=== PATIENT | female | born 1945 | race American Indian/Alaskan Native ===

== ENCOUNTER 2016-09-18 12:18 | Emergency (ER) | payer MEDICARE ==
[2016-09-18 12:25] VITALS: TEMP 98.4; O2SAT 98
--- NOTE | 2016-09-18 12:36 | C.PDOC ---
History Of Present Illness 71 yr old female presents to the ER with complaints of right ankle, right knee and left wrist pain since yesterday, after sustaining a mechanical fall. Patient states she twisted her right ankle and fell, trying to break her fall with the left wrist. Patient reports of slight pain with walking. Denies head injury, chest pain, back pain, neck pain, shoulder pain, weakness or numbness. Time Seen by Provider: 09/18/16 12:36 Chief Complaint (Nursing): Lower Extremity Problem/Injury History Per: Patient History/Exam Limitations: no limitations Onset/Duration Of Symptoms: Days (1) Past Medical History Reviewed: Historical Data, Nursing Documentation, Vital Signs Vital Signs: Last Vital Signs Temp 98.4 F 09/18/16 12:23 Pulse 92 H 09/18/16 12:23 Resp 20 09/18/16 12:23 BP 153/88 H 09/18/16 12:23 Pulse Ox 98 09/18/16 13:49 - Medical History PMH: HTN Family History: States: No Known Family Hx - Social History Hx Alcohol Use: No Hx Substance Use: No - Immunization History Hx Tetanus Toxoid Vaccination: No Hx Influenza Vaccination: No Hx Pneumococcal Vaccination: No Review Of Systems Except As Marked, All Systems Reviewed And Found Negative. Cardiovascular: Negative for: Chest Pain Musculoskeletal: Positive for: Other ((+) Right ankle pain. Right knee pain. Left wrist pain. Twisted right ankle. ). Negative for: Neck Pain, Shoulder Pain , Back Pain Neurological: Negative for: Weakness, Numbness Physical Exam - Physical Exam Appears: Well, Non-toxic, No Acute Distress Skin: Warm Head: Atraumatic, Normacephalic Neck: No Midline Cervical Tenderness, No Paracervical Tenderness, No Step Off Deformity, Supple Chest: Symmetrical, No Tenderness Back: No Vertebral Tenderness Extremity: Normal ROM (B/L UEs and LEs), Tenderness (Right ankle,lateral malleolus. Proximal fibula. Posterior right knee. Lateral aspect of left wrist. ), Capillary Refill (<2), No Deformity, No Swelling Neurological/Psych: Oriented x3, Normal Speech, Normal Motor, Normal Sensation, Normal Reflexes ED Course And Treatment O2 Sat by Pulse Oximetry: 98 - Other Rad X-Ray - Right Tibia Fibula, Right Knee, Right Ankle X-Ray: Interpreted by Me, Viewed By Me Interpretation: (+) Osteopenia. DJD. X-Ray - Left Wrist X-Ray: Interpreted by Me, Viewed By Me Interpretation: (-) Fractures. Dislocations. Progress Note: DELAY DUE TO DELAY IN IMAGING STUDY. On re-eavluation, pt eulogio febrile, hemodynamicaly stable. Ambulatory in Ed with stable gait. RLE: exam c /w ankle sprain, no obvious deformity. FAROM, no neurovascular deficits. Left wirst: exam c/w wrist sprain. FAROM, no neurovascular deficits. xray review and appears without acute abnormalities. Andrea wrap applied to Right ankle and Left wrist. Air cast applied to Right ankle. Pt advised on course of ds. ref. to f/u with Ortho in 2-3 days for re-eval. as need. Return if any new changes. Medical Decision Making Medical Decision Making: PLAN: * X-Ray - Left Wrist, Right Tibia Fibula. Right Knee, Right Ankle * Tramadol PO Disposition Counseled Patient/Family Regarding: Studies Performed, Diagnosis, Need For Followup, Rx Given - Disposition Referrals: Christie Claros MD [Staff Provider] - Disposition: HOME/ ROUTINE Disposition Time: 13:50 Condition: STABLE Additional Instructions: Andrea wrap RICE-rest, ice, compression, elevation Take tylenol as need for apin Follow up with Orthopedist in 2-3 days for re-evaluation as need Return to ED if any worsening or new changes. 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 - Scribe Statement The provider has reviewed the documentation as recorded by the Scribe Domonique Anderson All medical record entries made by the Camilaibajith were at my direction and personally dictated by me. I have reviewed the chart and agree that the record accurately reflects my personal performance of the history, physical exam, medical decision making, and the department course for this patient. I have also personally directed, reviewed, and agree with the discharge instructions and disposition.
[2016-09-18 14:12] VITALS: BP 135/75; PULSE 85; RESP 18
--- NOTE | 2016-09-18 14:26 | RAD ---
PROCEDURE: Right Ankle Radiographs. HISTORY: injury COMPARISON: None FINDINGS: BONES: . No acute fracture. Inferior medial malleoli are osseous hypertrophy consistent with spurring and/or old trauma JOINTS: No osteoarthritis. Ankle mortise maintained. Talar dome intact SOFT TISSUES: Marked soft tissue swelling especially over the lateral malleolus OTHER FINDINGS: Density projecting over the anterior inferior talus on the oblique view not appreciated on other projection. No suspect lytic lesions. Consider elective follow-up right foot x-ray imaging for further evaluation IMPRESSION: No acute fracture or dislocation Marked soft tissue swelling especially over lateral malleolus. Other findings as above
--- NOTE | 2016-09-18 14:56 | RAD ---
PROCEDURE: Right Knee Radiographs. HISTORY: injury COMPARISON: None. FINDINGS: BONES: No fracture appreciated. Osteophytosis posterior superior patella and along the medial knee joint line and medial femoral condyle most notable JOINTS: Advanced medial femoral tibial osteoarthrosis JOINT EFFUSION: Probable suprapatellar OTHER FINDINGS: None. IMPRESSION: Osteoarthrosis with probable suprapatellar joint effusion. No fracture appreciated
--- NOTE | 2016-09-18 15:30 | RAD ---
PROCEDURE: Radiographs of the right tibia and fibula. HISTORY: injury COMPARISON: None available. TECHNIQUE: Frontal and lateral views obtained. FINDINGS: BONES: No fracture or destructive lesion. JOINT SPACES: Unremarkable. OTHER FINDINGS: Knee joint level spurring and inferior medial malleoli are spurring IMPRESSION: No fracture of the right tibia and fibula. Degenerative changes as above
--- NOTE | 2016-09-18 16:00 | RAD ---
PROCEDURE: Left Wrist Radiographs. HISTORY: injury COMPARISON: None. FINDINGS: BONES: No evidence of acute fracture. There is dorsal angulation of the distal radial articular surface with vague deformity of the distal radius. This may reflect old fracture. There is no evidence of acute radial fracture. Nevertheless, if there is suspicion of acute fracture then further evaluation is suggested with cross-sectional imaging. 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 There is a corticated ossific density seen along the palmar aspect of the CMC 1 articulation which may represent productive bony change or may represent an adjacent accessory ossicle. Its significance is not clear. SOFT TISSUES: Normal. OTHER FINDINGS: None. IMPRESSION: Possible old distal radial fracture. Please correlate clinically and if there is persistent suspicion of acute radial fracture then evaluation with cross-sectional imaging is suggested. Osteoarthritis of CMC 1. So as were before masses clotted may wish at its C-spine upper
== END 2016-09-18 14:13 | disposition home or self-care (01) ==
LOC: C.ER 12:18
DX: S66.912A Strain of unspecified muscle, fascia and tendon at wrist and hand level, left hand, initial encounter (principal); S93.401A Sprain of unspecified ligament of right ankle, initial encounter; S83.91XA Sprain of unspecified site of right knee, initial encounter; W18.39XA Other fall on same level, initial encounter; Y92.9 Unspecified place or not applicable